=== PATIENT | female | born 1995 | race Two or more races ===

== ENCOUNTER 2018-11-23 10:34 | Inpatient (IN) | payer OTHER ==
[~2018-11-23] VITALS: Ht 170.2 cm; Wt 3.2 kg
[2018-12-15] MEDS ORDERED: PRENATAL TABLE1 EAC1 PO (10:06)
== END 2018-12-18 13:06 | disposition home or self-care (01) | DRG 788 ==
LOC: OB/GYN 11-30 11:00 → O/R 12-15 09:52 → OB/GYN 12-15 11:00
PROVIDERS: ADMIT Specialist
PROC: 4A0HXFZ Measurement of Products of Conception, Cardiac Rhythm, External Approach (ICD-10-PCS; 2018-12-15)
PROC: 10D00Z1 Extraction of Products of Conception, Low, Open Approach (ICD-10-PCS; principal; 2018-12-15 07:00)
DX: O82 Encounter for cesarean delivery without indication (principal); Z37.0 Single live birth; O33.8 Maternal care for disproportion of other origin; O48.0 Post-term pregnancy; Z3A.40 40 weeks gestation of pregnancy

== ENCOUNTER 2021-06-05 07:30 | Inpatient (IN) | payer OTHER ==
[~2021-06-05] VITALS: Ht 170.2 cm; Wt 3.2 kg
[~2021-06-05 07:30] MED LIST: PRENATAL TABLE1 EAC1 PO
[2021-06-08] MEDS ORDERED: VALACYCLOVIR500 MG (08:20)
[2021-06-10] MEDS ORDERED: IBUPROFEN800 MG PO (08:34)
== END 2021-06-10 13:58 | disposition home or self-care (01) | DRG 785 ==
LOC: O/R 06-08 06:25 → LDR 06-08 07:30 → OB/GYN 06-08 11:32 → LDR 06-20 07:30
PROVIDERS: ADMIT Specialist; ATTEND Specialist
PROC: 0UL70ZZ Occlusion of Bilateral Fallopian Tubes, Open Approach (ICD-10-PCS; 2021-06-08)
PROC: 4A1HXCZ Monitoring of Products of Conception, Cardiac Rate, External Approach (ICD-10-PCS; 2021-06-08)
PROC: 10D00Z1 Extraction of Products of Conception, Low, Open Approach (ICD-10-PCS; principal; 2021-06-08 09:30)
DX: O82 Encounter for cesarean delivery without indication (principal); Z3A.38 38 weeks gestation of pregnancy; Z37.0 Single live birth; Z30.2 Encounter for sterilization

== ENCOUNTER 2024-04-28 05:52 | Emergency (ER) | payer OTHER ==
[~2024-04-28] VITALS: Ht 170.2 cm; Wt 63.5 kg
[~2024-04-28 05:52] MED LIST changes: +IBUPROFEN800 MG PO; +VALACYCLOVIR500 MG
[2024-04-28 06:03] VITALS: BP 126/78; O2SAT 100
[2024-04-28 09:15] LABS: HEMATOCRIT 38.6 % (36.0-45.00); HEMOGLOBIN 12.9 g/dL (12.0-15.00); MEAN CELL VOLUME 81.1 fL (80.00-100.00); MEAN CORPUSCULAR HEMOGLOBIN 27.1 pg (27.00-32.0); MEAN CORPUSCULAR HGB CONC 33.4 g/dl (32.0-36.0); PLATELET COUNT 315 K/uL (150-450); RED BLOOD COUNT 4.75 M/uL (4.00-6.00)
[2024-04-28 09:17] LABS: PH,URINE 6.5 (5.0-8.0); URINE APPEARANCE Clear; URINE BILIRRUBIN Negative (NEGATIVE); URINE BLOOD Negative; URINE COLOR Yellow; URINE GLUCOSE Negative (NEGATIVE); URINE KETONE Negative (NEGATIVE); URINE LEUKOCYTE Negative; URINE NITRATE Negative; URINE PROTEIN Negative (NEGATIVE); URINE UROBILINOGEN 0.2 E.U./dl
[2024-04-28 09:19] LABS: RED CELL DISTRIBUTION WIDTH 17.1 % (11.5-14.5); URINE BACTERIA 117.1 uL (0.0-1933); URINE EPITHELIAL CELLS 14.9 uL (0.0-38.8); URINE WBC 2.3 uL (0.0-23.2)
[2024-04-28 09:27] LABS: URINE RBC 1.5 uL (0.0-20.8)
[2024-04-28 09:44] LABS: ALBUMIN 4.3 gm/dL (3.4-5.0); BILIRUBIN TOTAL 0.31 mg/dL (0.3-1.2); CALCIUM 9.3 mg/dL (8.5-10.1); CREATININE SERUM 0.7 mg/dL (0.55-1.02); GFR 98.93; GLOBULINA 3.6 G/DL (2.4-3.5); POTASSIUM 3.71 mEq/L (3.5-5.1); TOTAL PROTEIN 7.9 gm/dL (6.4-8.2)
== END 2024-04-28 13:02 | disposition home or self-care (01) ==
LOC: ER 05:53
PROVIDERS: General Practice
DX: R42 Dizziness and giddiness (principal); R51.9 Headache, unspecified

== ENCOUNTER 2024-08-03 08:03 | Outpatient (CLI) | payer OTHER | END 2024-08-03 08:17 | disposition home or self-care (01) | LOC: MRI 08:03 | DX: G43.711 Chronic migraine without aura, intractable, with status migrainosus (principal) | CPT/HCPCS: 70551 ==